=== PATIENT | male | born 1985 | race Caucasian/White ===

== ENCOUNTER 2020-04-20 01:37 | Emergency (ER) | payer MEDICAID ==
[~2020-04-20] VITALS: Ht 152.4 cm; Wt 91.0 kg
[2020-04-20] MEDS ORDERED: VISCOUS LIDOCAINE 2% 15 ML UDC MM ONE (02:00)
[2020-04-20] MEDS ORDERED: SODIUM CHLORIDE 0.9% 1,000 ML IV ONE (02:00)
[2020-04-20] MEDS ORDERED: ONDANSETRON HCL 4MG/2ML INJ IV ONE (02:00)
[2020-04-20] MEDS ORDERED: FAMOTIDINE 20MG/2ML VIAL IV SCH (02:00)
[2020-04-20 02:37] LABS: BASOPHILS % 0.7 % (0.0-2.0); EOSINOPHILS % 0.2 % (0.0-5.0); HEMOGLOBIN. 16.1 g/dL (14.0-18.0); LYMPHOCYTES % 35.7 % (20.0-50.0); MEAN CORPUSCULAR HEMOGLOBIN 28.9 pg (28.0-32.0); MEAN CORPUSCULAR VOLUME 82.4 fL (80.0-94.0); MEAN PLATELET VOLUME 8.8 fl (7.4-10.4); MONOCYTES % 7.7 % (2.0-8.0); NEUTROPHILS % 55.7 % (40.0-76.0); PLATELET 233 x1000/uL (130-400); RED BLOOD CELL COUNT 5.58 mill/uL (4.7-6.1); RED CELL DISTRIBUTION WIDTH 13.6 % (11.6-14.6)
[2020-04-20 03:32] LABS: CHLORIDE 105 mEq/L (98-107)
[2020-04-20 03:36] LABS: ETHANOL BLOOD 258 mg/dL
[2020-04-20 07:44] VITALS: BP 158/77
== END 2020-04-20 08:32 | disposition home or self-care (01) ==
LOC: ER 01:37
DX: K29.20 Alcoholic gastritis without bleeding (principal); F10.229 Alcohol dependence with intoxication, unspecified; E11.9 Type 2 diabetes mellitus without complications; I10 Essential (primary) hypertension; Y90.9 Presence of alcohol in blood, level not specified
CPT/HCPCS: 36415; 80053; 80320; 83690; 85025; 93005; 96361; 96374; 96375; 99285; J2405; J3490; J7030; G0480